=== PATIENT | female | born 2000 | race Caucasian/White ===

== ENCOUNTER 2021-09-20 14:00 | Emergency (ER) | payer OTHER ==
[2021-09-20 14:45] LABS: RED BLOOD COUNT 4.63 M/UL (4.00-5.10); WHITE BLOOD COUNT 8.6 K/UL (4.5-11.0)
[2021-09-20 15:05] LABS: BUN/CREATININE RATIO 9 (0-10)
[2021-09-20] MEDS ORDERED: AZITHROMYCIN250 MG PO (17:41)
== END 2021-09-20 17:49 | disposition home or self-care (01) ==
LOC: ER1 14:00
PROVIDERS: Physician Assistant
DX: R05.9 Cough, unspecified (principal); Z20.822 Contact with and (suspected) exposure to COVID-19
CPT/HCPCS: 0240U; 71045; 80053; 85025; 87081; 87880; 99283